=== PATIENT | male | born 1990 | race Caucasian/White ===

== ENCOUNTER → 2017-03-31 | Outpatient (CLI) | payer BC ==
--- NOTE | 2017-03-31 10:06 | REP ---
Clinical: Pain. Technique: AP, lateral, bilateral oblique views left foot . Findings: The osseous structures and joint spaces are intact and normal. There is no evidence for acute fracture or dislocation. Surrounding soft tissues are unremarkable. No subcutaneous emphysema or radiodense foreign body. Impression: Normal examination. No acute fracture or dislocation. Signed by Remberto Ortega MD 03/31/2017 09:57 A
== END ==
LOC: M WUC 09:22
PROVIDERS: ATTEND Physician Assistant
DX: M79.672 Pain in left foot (principal)

== ENCOUNTER 2017-12-01 19:59 | Emergency (ER) | payer OTHER, BC ==
[2017-12-01] MEDS: CLINDAMYCIN 150 MG CAP PO (21:00)
[2017-12-01] MEDS: OXYCODONE/APAP 5MG/325MG(BULK FOR ED) 1 TABLET PO (21:00)
[2017-12-01] MEDS: PERCOCET 5MG/325MG TAB PO (21:00)
== END 2017-12-01 21:03 | disposition home or self-care (01) ==
LOC: M ED 19:59
DX: K04.7 Periapical abscess without sinus (principal); Z88.0 Allergy status to penicillin; Z88.5 Allergy status to narcotic agent; F17.210 Nicotine dependence, cigarettes, uncomplicated
CPT/HCPCS: 99282

== ENCOUNTER 2024-04-14 01:17 | Emergency (ER) | payer OTHER ==
[~2024-04-14] VITALS: Ht 180.3 cm; Wt 99.8 kg
[2024-04-14 01:17] VITALS: BP 140/96; TEMP 98.7; O2SAT 98
[~2024-04-14 01:17] MED LIST: CLEO300C2 PO; IBUP80TA
[2024-04-14] MEDS ORDERED: BENZ150C5 PO (01:26)
[2024-04-14] MEDS ORDERED: PRED20TA PO (01:26)
== END 2024-04-14 02:24 | disposition left against medical advice (07) ==
LOC: M ED 01:17
DX: Z53.21 Procedure and treatment not carried out due to patient leaving prior to being seen by health care provider (principal)

== ENCOUNTER 2024-11-16 07:39 | Emergency (ER) | payer OTHER ==
[~2024-11-16] VITALS: Ht 180.3 cm; Wt 94.7 kg
[~2024-11-16 07:39] MED LIST changes: +BENZ150C5 PO; +PRED20TA PO
[2024-11-16 07:42] VITALS: BP 151/73; TEMP 97.2; O2SAT 98
[2024-11-16] MEDS ORDERED: AMPH1CAP5 PO (08:05)
[2024-11-16] MEDS ORDERED: BACT800T5 PO (09:34)
== END 2024-11-16 09:51 | disposition home or self-care (01) ==
LOC: M ED 07:39
DX: L08.9 Local infection of the skin and subcutaneous tissue, unspecified (principal); Z86.14 Personal history of Methicillin resistant Staphylococcus aureus infection; F19.11 Other psychoactive substance abuse, in remission; F90.9 Attention-deficit hyperactivity disorder, unspecified type; F17.200 Nicotine dependence, unspecified, uncomplicated; Z88.0 Allergy status to penicillin; Z88.5 Allergy status to narcotic agent